=== PATIENT | female | born 1990 | race Caucasian/White ===

== ENCOUNTER 2017-02-20 11:43 | Inpatient (IN) | payer OTHER ==
[~2017-02-20] VITALS: Ht 162.6 cm; Wt 162.0 kg
[2017-02-20 13:02] LABS: HEMATOCRIT 35.4 % (36.0-46.0); MCHC 31.9 G/DL (30.0-36.0); MCV 93.9 FL (83-99); MEAN PLAT.VOLUME 10.1 uM^3 (9.5-12.4); PLATELET COUNT 245 K/uL (156-360); RBC DIS.WIDTH-CV 12.7 % (11.8-14.6); RBC DIS.WIDTH-SD 43.9 % (39-53); RED BLOOD COUNT 3.77 M/uL (3.80-5.20); WHITE BLOOD COUNT 7.5 K/uL (4.1-10.2)
[2017-02-20 13:14] LABS: CHLORIDE 110 mEq/L (99-109); POTASSIUM 4.1 mEq/L (3.7-5.4); SODIUM 141 mEq/L (136-147)
[2017-02-20 13:16] LABS: GLUCOSE 95 mg/dL (70-99)
[2017-02-20 13:17] LABS: ANION GAP 10 MEQ/L (2-14)
[2017-02-20 13:18] LABS: TOTAL BILIRUBIN 0.2 mg/dL (0.0-1.0)
[2017-02-20 13:19] LABS: ALKALINE PHOSPHATASE 69 IU/L (3-129); SERUM ETHYL ALCOHOL < 10 mg/dL
[2017-02-20 13:20] LABS: GFR ESTIMATE (CALCULATED) > 59 mL/min/
[2017-02-20 13:21] LABS: UREA NITROGEN (BUN) 11 mg/dL (9-23)
[2017-02-20 13:30] LABS: QUANTITATIVE HCG < 4.0 MIU/ML
[2017-02-20 13:59] LABS: ADD MIUA? YES; BILIRUBIN NEGATIVE; BLOOD SMALL; COLOR YELLOW ((YELLOW)); GLUCOSE (STRIP) NEGATIVE; KETONES NEGATIVE; LEUKOCYTES LARGE; NITRITE NEGATIVE; PROTEIN (STRIP) NEGATIVE; UROBILINOGEN 0.2 MG/DL (0.2-1.0)
[2017-02-20 14:03] LABS: BACTERIA RARE /HPF; BUDDING YEAST 1+; EPITHELIAL CELLS 2+ /HPF; MUCUS TRACE /LPF; WHITE BLOOD CELLS 30-40 /HPF (0-5)
[2017-02-20 14:21] LABS: AMPHETAMINE NEGATIVE (500 ng/mL); BARBITURATES NEGATIVE (200 ng/mL); BENZODIAZEPINES NEGATIVE (150 ng/mL); COCAINE NEGATIVE (150 ng/mL); INTERNAL CONTROLS VALID? YES; METHADONE NEGATIVE (200 ng/mL); METHAMPHETAMINE NEGATIVE (500 ng/mL); OPIATES (MORPHINE) NEGATIVE (100 ng/mL); OXYCODONE NEGATIVE (100 ng/mL); PHENCYCLIDINE NEGATIVE (25 ng/mL); PROPOXYPHENE NEGATIVE (300 ng/mL); THC CANNABINOIDS NEGATIVE (50 ng/mL); TRICYCLIC ANTIDEPRESSANTS PRESUMPTIVE POSITIVE (300 ng/mL)
[2017-02-20] MEDS ORDERED: NEURONTIN100 MG PO (14:56)
[2017-02-20 17:31] VITALS: BP 136/83
[2017-02-20] MEDS ORDERED: SEROQUEL300 MG PO (17:40)
[2017-02-20] MEDS ORDERED: TOPAMAX50 MG PO (17:40)
[2017-02-20] MEDS ORDERED: TRAZODONE HCL50 MG PO ×2 (17:41→21:41)
[2017-02-20 17:44] VITALS: BP 136/83
[2017-02-21 07:07] VITALS: BP 99/57
[2017-02-21 15:30] VITALS: BP 121/76
[2017-02-22 07:30] VITALS: BP 117/67
[2017-02-22 15:24] VITALS: BP 130/88
[2017-02-23 07:42] VITALS: BP 114/60
[2017-02-23] MEDS ORDERED: SYNTHROID100 MCG PO (09:01)
[2017-02-23] MEDS ORDERED: ESCITALOPRAM OX10 MG PO (09:01)
== END 2017-02-23 11:30 | disposition home or self-care (01) | DRG 883 ==
LOC: EME 11:43 → 1WEST 14:01 → EDOF 14:01 → 1WEST 17:30 → ENRESERV 17:30 → 1WEST 02-23 11:30
PROVIDERS: Emergency Medicine
DX: F60.3 Borderline personality disorder (principal); R45.851 Suicidal ideations; F32.9 Major depressive disorder, single episode, unspecified; F41.9 Anxiety disorder, unspecified; E03.9 Hypothyroidism, unspecified; E66.9 Obesity, unspecified; Z68.44 Body mass index [BMI] 60.0-69.9, adult; Z87.820 Personal history of traumatic brain injury
CPT/HCPCS: 80053; 81003; 84443; 84702; 85027; 90839; 97150 GO; 97165 GO; 99281; 99285; G0480; Q0177